=== PATIENT | female | born 1990 | race Caucasian/White ===

== ENCOUNTER 2018-01-24 03:30 | Inpatient (IN) | payer OTHER ==
[~2018-01-24] VITALS: Ht 157 cm; Wt 81.6 kg
[2018-01-24] MEDS ORDERED: METOCLOPRAMIDE HCL 5 MG/ML 2 ML VIAL IVP PRN (04:00)
[2018-01-24] MEDS ORDERED: FentaNYL CITRATE-PF 100 MCG/2 ML VIAL IVP PRN (04:00)
[2018-01-24] MEDS ORDERED: CITRIC ACID/SODIUM CITRATE 30 ML SOLUTION UDCUP PO PRN (04:00)
[2018-01-24] MEDS ORDERED: OXYTOCIN 30 UNITS/LACT RINGERS 500 ML IV ONE (04:02)
[2018-01-24 04:10] VITALS: BP 122/74
[2018-01-24] MEDS ORDERED: PREN1TAB80 PO (04:14)
[2018-01-24 04:21] LABS: BASOPHILS % (AUTO) 0.4 % (0.0-2.0); EOSINOPHILS % (AUTO) 0.1 % (1.0-6.0); HEMATOCRIT 36.3 % (36-46); HEMOGLOBIN 12.3 g/dL (12.0-16.0); LYMPHOCYTES % (AUTO) 7.7 % (22.0-44.0); MEAN CORPUSCULAR HEMOGLOBIN 29.5 pg (26.0-34.0); MEAN CORPUSCULAR VOLUME 87 fL (80-100); MONOCYTES # (AUTO) 0.7 K/uL (0.1-1.0); NEUTROPHILS # (AUTO) 11.4 K/uL (1.8-7.7); PLATELET COUNT (AUTO)-OB 216 K/uL (150-450); RED BLOOD CELL COUNT(AUTO) 4.18 MIL/uL (4.00-5.20); RED CELL DISTRIBUTION WIDTH 13.9 % (11.5-14.5)
[2018-01-24 04:22] LABS: NEUTROPHILS % (AUTO) 86.8 % (40.0-70.0)
[2018-01-24] MEDS: RINGERS SOLUTION,LACTATED 1,000 ML IV SCH ×3 (04:24→08:40)
[2018-01-24] MEDS ORDERED: ROPIVACAINE HCL/PF 0.2% 100 ML ED ONE (04:29)
[2018-01-24 04:41] LABS: PLATELET MORPHOLOGY COMMENT GIANT PLTS PRESENT
[2018-01-24] MEDS ORDERED: OXYTOCIN 30 UNITS/LACT RINGERS 500 ML IV PRN (04:45)
[2018-01-24] MEDS ORDERED: ONDANSETRON HCL 4 MG/2 ML VIAL IVP PRN (05:15)
[2018-01-24] MEDS ORDERED: ROPIVACAINE HCL/PF 0.2% 100 ML ED PRN (05:15)
[2018-01-24] MEDS ORDERED: DiphenhydrAMINE HCL 50 MG/ML VIAL IVP PRN (05:15)
[2018-01-24] MEDS ORDERED: RINGERS SOLUTION,LACTATED 1,000 ML IV ONE (11:17)
[2018-01-24] MEDS ORDERED: OxyCODONE HCL/ACETAMINOPHEN 5-325 MG TABLET PO PRN ×2 (11:30)
[2018-01-24] MEDS ORDERED: GLYCERIN/WITCH HAZEL LEAF 40 PADS JAR TP PRN (11:30)
[2018-01-24] MEDS ORDERED: LIDOCAINE/PF 1% 30 ML VIAL INJ PRN (11:30)
[2018-01-24] MEDS ORDERED: MISOPROSTOL 100 MCG TABLET PR ONE (12:43)
[2018-01-24] MEDS ORDERED: LIDOCAINE/PF 2% 5 ML VIAL ONE (12:43)
[2018-01-24] MEDS: IBUPROFEN 600 MG TABLET PO PRN ×2 (13:59→21:32)
[2018-01-24] MEDS: SENNA/DOCUSATE SODIUM 8.6-50 MG TABLET PO SCH (21:33)
[2018-01-25] MEDS: IBUPROFEN 600 MG TABLET PO PRN (05:15)
[2018-01-25 06:14] LABS: BASOPHILS % (AUTO) 0.3 % (0.0-2.0); EOSINOPHILS % (AUTO) 0.6 % (1.0-6.0); HEMATOCRIT 28.4 % (36-46); HEMOGLOBIN 9.6 g/dL (12.0-16.0); LYMPHOCYTES # (AUTO) 1.4 K/uL (1.0-4.8); LYMPHOCYTES % (AUTO) 9.9 % (22.0-44.0); MEAN CORPUSCULAR HEMOGLOBIN 30.1 pg (26.0-34.0); MEAN CORPUSCULAR VOLUME 89 fL (80-100); MONOCYTES # (AUTO) 0.9 K/uL (0.1-1.0); MONOCYTES % (AUTO) 6.5 % (2.0-9.0); NEUTROPHILS # (AUTO) 11.5 K/uL (1.8-7.7); NEUTROPHILS % (AUTO) 82.7 % (40.0-70.0); PLATELET COUNT (AUTO)-OB 152 K/uL (150-450); RED CELL DISTRIBUTION WIDTH 14.3 % (11.5-14.5)
[2018-01-25] MEDS: SENNA/DOCUSATE SODIUM 8.6-50 MG TABLET PO SCH (09:42)
[2018-01-25] MEDS ORDERED: IBUP-2070 PO (14:07)
[2018-01-25] MEDS ORDERED: DSS100 PO (14:08)
== END 2018-01-25 15:10 | disposition home or self-care (01) | DRG 807 ==
LOC: 4S 03:30 → OBSVTOIN 03:30
PROVIDERS: ADMIT Obstetrics & Gynecology; ATTEND Obstetrics & Gynecology
PROC: 10E0XZZ Delivery of Products of Conception, External Approach (ICD-10-PCS; principal; 2018-01-24)
PROC: 0KQM0ZZ Repair Perineum Muscle, Open Approach (ICD-10-PCS; 2018-01-24)
PROC: 3E0R3BZ Introduction of Anesthetic Agent into Spinal Canal, Percutaneous Approach (ICD-10-PCS; 2018-01-24)
PROC: 00HU33Z Insertion of Infusion Device into Spinal Canal, Percutaneous Approach (ICD-10-PCS; 2018-01-24)
DX: O70.1 Second degree perineal laceration during delivery (principal); Z37.0 Single live birth; Z3A.40 40 weeks gestation of pregnancy
CPT/HCPCS: 86850; 86900; 86901; 87340; J2590; J2795; J3490; J7120